=== PATIENT | female | born 1975 | race Caucasian/White ===

== ENCOUNTER 2019-10-25 12:36 | Emergency (ER) | payer OTHER ==
[2019-10-25 12:50] VITALS: PULSE 59
[2019-10-25] MEDS ORDERED: TORAdol 30 mg Injection IM ONE (13:16)
[2019-10-25] MEDS ORDERED: TORAdol 30 mg Injection ONE (13:18)
--- NOTE | 2019-10-25 13:21 | ERPHSYRPT ---
- History of Present Illness Time Seen by Provider: 10/25/19 12:54 Source: patient Exam Limitations: no limitations Patient Subjective Stated Complaint: pt to ER with complaints of R shoulder pain since last night. pt states limited ROM. pt states she was working out in yard yesterday and felt a "tear" or "pull". Triage Nursing Assessment: pt ambulatory. A&Ox4. pt skin pwd. limited ROM due to pain. Physician History: 44 yo wf w R shoulder pain after hearing a pop while tearing up boxes. Pain is 8 /10 and worse w abduction/external rotation. Pt is R handed and denies previous/ other injuries. Occurred: yesterday Method of Injury: other (Tearing up boxes) Quality: constant Severity of Pain-Max: severe Severity of Pain-Current: severe Extremities Pain Location: shoulder: right Modifying Factors: Improves With: movement Associated Symptoms: none Allergies/Adverse Reactions: acetaminophen [From Darvocet-N] Allergy (Intermediate, Verified 10/25/19 12:51) Hives propoxyphene [From Darvocet-N] Allergy (Intermediate, Verified 10/25/19 12:51) Hives tramadol Allergy (Intermediate, Verified 10/25/19 12:51) Hives Home Medications: Albuterol 1 amp INTRANASAL DAILY PRN PRN 10/25/19 [History] Buspirone HCl [Buspar] 10 mg PO BID 10/25/19 [History] Nitroglycerin 0.4 mg Tablet [Nitrostat 0.4 MG Tablet] 0.4 mg SL DAILY PRN PRN 10/25/19 [History] Prednisone 10 mg [Deltasone 10 mg] 10 mg PO DAILY 10/25/19 [History] atenoloL [Atenolol] 25 mg PO DAILY 10/25/19 [History] lisinopriL [Lisinopril] 40 mg PO DAILY 10/25/19 [History] Hx Tetanus, Diphtheria Vaccination/Date Given: Yes Hx Influenza Vaccination/Date Given: Yes Hx Pneumococcal Vaccination/Date Given: Yes Immunizations Up to Date: Yes Travel Risk - International Travel Have you traveled outside of the country in past 3 weeks: No Have you or anyone close to you been diagnosed with or: No Do your reside in a community with a known COVID-19 case?: Yes If Yes where:: [facility] - Coronavirus Screening Has patient experienced Coronavirus symptoms: No - Review of Systems Constitutional: No Symptoms Eyes: No Symptoms Ears, Nose, & Throat: No Symptoms Respiratory: No Symptoms Cardiac: No Symptoms Abdominal/Gastrointestinal: No Symptoms Genitourinary Symptoms: No Symptoms Musculoskeletal: Injury, No Arthralgias, No Back Pain, No Neck Pain, No Deformity, No Fall Skin: No Symptoms Neurological: No Symptoms Psychological: No Symptoms Endocrine: No Symptoms Hematologic/Lymphatic: No Symptoms Immunological/Allergic: No Symptoms - Past Medical History Pertinent Past Medical History: Yes Neurological History: No Pertinent History ENT History: No Pertinent History Cardiac History: Arrhythmia, Hypertension Respiratory History: Asthma Endocrine Medical History: No Pertinent History Musculoskeletal History: No Pertinent History GI Medical History: No Pertinent History History: No Pertinent History Psycho-Social History: No Pertinent History Female Reproductive Disorders: No Pertinent History - Past Surgical History Past Surgical History: Yes Neuro Surgical History: No Pertinent History Cardiac: No Pertinent History Respiratory: No Pertinent History Gastrointestinal: No Pertinent History Genitourinary: No Pertinent History Musculoskeletal: Orthopedic Surgery Female Surgical History: Section, Tubal Ligation Other Surgical History: urterine ablation. - Social History Smoking Status: Never smoker Exposure to second hand smoke: Yes Drug Use: none Patient Lives Alone: No Significant Family History: no pertinent family hx - Female History Hx Now: No - Nursing Vital Signs Nursing Vital Signs: Initial Vital Signs Temperature 98.9 F 10/25/19 12:42 Pulse Rate 59 L 10/25/19 12:42 Respiratory Rate 17 10/25/19 12:42 Blood Pressure 153/85 10/25/19 12:42 O2 Sat by Pulse Oximetry 96 10/25/19 12:42 Pain Scale Pain Intensity 8 - Physical Exam General Appearance: no apparent distress Eyes, Ears, Nose, Throat Exam: normal ENT inspection Neck Exam: normal inspection, non-tender, supple Cardiovascular/Respiratory Exam: chest non-tender, normal breath sounds, regular rate/rhythm, heart sounds normal Back Exam: normal inspection, normal range of motion Shoulder Exam: normal inspection (No evidence of dislocation/Pain w external rotation and abduction/good radial pulse, distal sensation, and capillary return ) Elbow/Forearm Exam: normal inspection Wrist Exam: normal inspection Hand Exam: normal inspection Neuro/Tendon Exam: normal sensation, normal motor functions, normal tendon functions, responds to pain Mental Status Exam: alert, oriented x 3, cooperative Skin Exam: normal color, warm, dry SpO2 Interpretation: normal SpO2: 96 O2 Delivery: Room Air - Course Nursing assessment & vital signs reviewed: Yes - Radiology Exams Shoulder X-ray Interpretation: Interpreted by me, No Fracture (No dislocation) Ordered Tests: Active Orders 24 hr Category Date Time Status SHOULDER Stat Exams 10/25/19 13:10 Taken Medication Summary Generic Name Dose Route Start Last Admin Trade Name Cadenq PRN Reason Stop Dose Admin Ketorolac Tromethamine 60 mg 10/25/19 13:16 Toradol 30 Mg Injection IM 10/25/19 13:17 STAT ONE - Progress Progress: improved Progress Note: 10/25/19 13:25 60mg IM toradol/Sling YOU per nurse, LEONARDI Counseled pt/family regarding: diagnosis, need for follow-up, rad results - Departure Departure Disposition: Home Clinical Impression: Rotator cuff (capsule) sprain Condition: Stable Critical Care Time: No Instructions: Shoulder Sprain (DC) Additional Instructions: Heat/Rest/Sling for 3-4 days/Toradol as needed for pain Follow up with your family Prescriptions: Ketorolac Tromethamine [Toradol] 10 mg PO TID PRN #10 tablet
--- NOTE | 2019-10-25 13:26 | XRAY ---
Indication: Pain following injury one day earlier. Comparison: None 3 view right shoulder demonstrates 1.5 cm acromion depression relative to the clavicle favoring acromioclavicular injury. No other bony, articular, or soft tissue abnormalities.
[2019-10-25 13:50] VITALS: BP 148/86; O2SAT 97
== END 2019-10-25 13:49 | disposition home or self-care (01) ==
LOC: ED 12:36
DX: S43.421A Sprain of right rotator cuff capsule, initial encounter (principal); M25.511 Pain in right shoulder; I10 Essential (primary) hypertension
CPT/HCPCS: 73030; 96372; 99284; J1885

== ENCOUNTER 2020-10-04 10:43 | Day surgery (SDC) | payer OTHER ==
[2020-10-04] MEDS ORDERED: BUPIVACAINE 0.5% VIAL IJ ONE (10:44)
[2020-10-04] MEDS ORDERED: Depo-Medrol 40 MG/ML IM ONE (10:44)
[2020-10-04] MEDS ORDERED: Lactated Ringers 1,000 ML IV ONE (16:27)
--- NOTE | 2020-10-04 17:49 | XRAY ---
33 seconds fluoroscopy time in surgery for intra-articular and subachromial injections of the right shoulder.
== END 2020-10-04 12:37 | disposition home or self-care (01) ==
LOC: SDC-PAIN 10:43
PROVIDERS: ATTEND Psychiatry & Neurology Pain Medicine
DX: M19.011 Primary osteoarthritis, right shoulder (principal); M75.51 Bursitis of right shoulder; I10 Essential (primary) hypertension; F41.8 Other specified anxiety disorders; J45.909 Unspecified asthma, uncomplicated; Z79.899 Other long term (current) drug therapy
CPT/HCPCS: 20610; 73030; 77002; 84703; J1030; Q9966

== ENCOUNTER 2021-02-14 13:34 | Day surgery (SDC) | payer OTHER ==
[2021-02-14] MEDS ORDERED: Depo-Medrol 40 MG/ML IM ONE (13:35)
[2021-02-14] MEDS ORDERED: Sodium Chloride 0.9(Preservative Free) 10 ML IJ ONE (13:35)
[2021-02-14] MEDS ORDERED: DIPRIVAN 200 MG/20 ML IV ONE (15:29)
[2021-02-14] MEDS ORDERED: Lactated Ringers 1,000 ML IV ONE (16:17)
--- NOTE | 2021-02-15 11:20 | XRAY ---
20 seconds fluoroscopy time in surgery for right L4-S1 transforaminal JAKI.
--- NOTE | 2021-02-17 23:05 | XRAY ---
Indication: Right L4-S1 transforaminal DOLLY. Intraoperative fluoroscopy was provided for 20 seconds. 3 digital spot images submitted for interpretation demonstrates posterior needle tips projected over the expected course of the right L4 and L5 nerve roots. A small amount of contrast has been injected for needle tip placement. Correlate with intraoperative findings/report.
== END 2021-02-14 15:51 | disposition home or self-care (01) ==
LOC: SDC-PAIN 13:34
PROVIDERS: ATTEND Psychiatry & Neurology Pain Medicine
DX: M54.16 Radiculopathy, lumbar region (principal); Z79.899 Other long term (current) drug therapy
CPT/HCPCS: 64483; 64484; 72100; 77003; 84703; J1030; J2704; Q9966

== ENCOUNTER 2021-03-21 08:14 | Day surgery (SDC) | payer OTHER ==
[2021-03-21] MEDS ORDERED: Depo-Medrol 40 MG/ML IM ONE (08:15)
[2021-03-21] MEDS ORDERED: BUPIVACAINE 0.5% VIAL IJ ONE (08:15)
[2021-03-21] MEDS ORDERED: Zofran 4 MG/2 ML VIAL ONE (08:58)
[2021-03-21] MEDS ORDERED: DIPRIVAN 200 MG/20 ML IV ONE (09:11)
--- NOTE | 2021-03-21 10:21 | XRAY ---
Indication: Right shoulder subacromial and intra-articular injections. Intraoperative fluoroscopy provided for 33 seconds. 2 digital spot image submitted for interpretation demonstrates needle tip projecting over the right glenohumeral joint superiorly. Second needle tip subacromial. Small amount of contrast injected for both needle tip placement. Correlate with intraoperative findings/report.
--- NOTE | 2021-03-21 11:46 | XRAY ---
33 seconds fluoroscopy time in surgery for injections of the subachromial bursa and intra-articular joint space of the right shoulder.
[2021-03-21] MEDS ORDERED: Lactated Ringers 1,000 ML IV ONE (17:24)
== END 2021-03-21 09:42 | disposition home or self-care (01) ==
LOC: SDC-PAIN 08:14
PROVIDERS: ATTEND Psychiatry & Neurology Pain Medicine
DX: M19.011 Primary osteoarthritis, right shoulder (principal); M75.51 Bursitis of right shoulder; I10 Essential (primary) hypertension; F41.9 Anxiety disorder, unspecified; F32.9 Major depressive disorder, single episode, unspecified; J45.909 Unspecified asthma, uncomplicated; M19.90 Unspecified osteoarthritis, unspecified site; Z79.899 Other long term (current) drug therapy
CPT/HCPCS: 20610; 73030; 77002; 84703; J1030; J2405; J2704; Q9966

== ENCOUNTER 2021-04-04 07:41 | Day surgery (SDC) | payer OTHER ==
[2021-04-04] MEDS ORDERED: LIDOCAINE HCL 2% 100 MG/5 ML IJ ONE (07:42)
[2021-04-04] MEDS ORDERED: DIPRIVAN 200 MG/20 ML IV ONE (09:13)
[2021-04-04] MEDS ORDERED: Lactated Ringers 1,000 ML IV ONE (09:55)
--- NOTE | 2021-04-04 10:12 | XRAY ---
Indication: Bilateral L4-S1 MBB. Intraoperative fluoroscopy provided for 12 seconds. Single digital spot image submitted for interpretation demonstrates posterior needle tips projecting over the expected left and right L4-S1 nerve roots. Correlate with intraoperative findings/report.
--- NOTE | 2021-04-04 10:30 | XRAY ---
12 seconds fluoroscopy time in surgery for bilateral L4-S1 MBB.
== END 2021-04-04 09:42 | disposition home or self-care (01) ==
LOC: SDC-PAIN 07:41
PROVIDERS: ATTEND Psychiatry & Neurology Pain Medicine
DX: M47.816 Spondylosis without myelopathy or radiculopathy, lumbar region (principal); I10 Essential (primary) hypertension; F41.9 Anxiety disorder, unspecified; F32.9 Major depressive disorder, single episode, unspecified; Z79.899 Other long term (current) drug therapy
CPT/HCPCS: 64493; 64494; 72020; 77002; 84703; J2704

== ENCOUNTER 2021-05-09 09:55 | Day surgery (SDC) | payer OTHER ==
[2021-05-09] MEDS ORDERED: BUPIVACAINE 0.5% VIAL IJ ONE (09:56)
[2021-05-09] MEDS ORDERED: DIPRIVAN 200 MG/20 ML IV ONE (12:46)
[2021-05-09] MEDS ORDERED: Lactated Ringers 1,000 ML IV ONE (13:31)
--- NOTE | 2021-05-09 14:49 | XRAY ---
Indication: Bilateral L4-S1 MBB. Intraoperative fluoroscopy provided for 24 seconds. Single digital spot image submitted for interpretation demonstrates posterior needle tips projecting over the expected left and right L4-S1 nerve roots. Correlate with intraoperative findings/report.
--- NOTE | 2021-05-09 17:02 | XRAY ---
24 seconds fluoroscopy time in surgery for bilateral L4-S1 MBB.
== END 2021-05-09 13:21 | disposition home or self-care (01) ==
LOC: SDC-PAIN 09:55
PROVIDERS: ATTEND Psychiatry & Neurology Pain Medicine
DX: M47.816 Spondylosis without myelopathy or radiculopathy, lumbar region (principal); I10 Essential (primary) hypertension; Z79.899 Other long term (current) drug therapy
CPT/HCPCS: 64493; 64494; 72020; 77002; 84703; J2704

== ENCOUNTER 2021-06-06 08:50 | Day surgery (SDC) | payer OTHER ==
[2021-06-06] MEDS ORDERED: Decadron 4 MG INJ IV ONE (08:51)
[2021-06-06] MEDS ORDERED: Xylocaine 1% Vial 30 ML PF IJ ONE (08:51)
[2021-06-06] MEDS ORDERED: BUPIVACAINE 0.5% VIAL IJ ONE (08:51)
[2021-06-06] MEDS ORDERED: Lactated Ringers 1,000 ML IV ONE (10:03)
[2021-06-06] MEDS ORDERED: DIPRIVAN 200 MG/20 ML IV ONE ×2 (11:05→11:12)
--- NOTE | 2021-06-06 12:59 | XRAY ---
Indication: Right L4-S1 RFA. Intraoperative fluoroscopy provided for 45 seconds. 3 digital spot images submitted for interpretation demonstrates posterior needle tips projecting over the expected right L4-S1 nerve roots. Correlate with intraoperative findings/report.
--- NOTE | 2021-06-06 13:50 | XRAY ---
45 seconds of fluoroscopy was used in surgery for a right L4-S1 RFA.
== END 2021-06-06 11:35 | disposition home or self-care (01) ==
LOC: SDC-PAIN 08:50
PROVIDERS: ATTEND Psychiatry & Neurology Pain Medicine
DX: M47.816 Spondylosis without myelopathy or radiculopathy, lumbar region (principal); I10 Essential (primary) hypertension; Z79.899 Other long term (current) drug therapy
CPT/HCPCS: 64635; 64636; 72100; 77002; 84703; J1100; J2001; J2704

== ENCOUNTER 2021-06-13 08:37 | Day surgery (SDC) | payer OTHER ==
[2021-06-13] MEDS ORDERED: BUPIVACAINE 0.5% VIAL IJ ONE (08:38)
[2021-06-13] MEDS ORDERED: Depo-Medrol 40 MG/ML IM ONE (08:38)
[2021-06-13] MEDS ORDERED: Xylocaine 1% Vial 30 ML PF IJ ONE (08:38)
[2021-06-13] MEDS ORDERED: APRESOLINE 20 MG/ML INJ ONE (09:14)
[2021-06-13] MEDS ORDERED: DIPRIVAN 200 MG/20 ML IV ONE ×2 (10:01→10:12)
[2021-06-13] MEDS ORDERED: Lactated Ringers 1,000 ML IV ONE (10:12)
--- NOTE | 2021-06-13 11:48 | XRAY ---
Indication: Left L4-S1 RFA. Intraoperative fluoroscopy provided for 45 seconds. 3 digital spot image submitted for interpretation demonstrates posterior needle tips projecting over the expected left L4-S1 nerve roots. Correlate with intraoperative findings/report.
--- NOTE | 2021-06-13 11:53 | XRAY ---
45 seconds of fluoroscopy was used in surgery for a left L4-S1 RFA.
== END 2021-06-13 10:35 | disposition home or self-care (01) ==
LOC: SDC-PAIN 08:37
PROVIDERS: ATTEND Psychiatry & Neurology Pain Medicine
DX: M47.816 Spondylosis without myelopathy or radiculopathy, lumbar region (principal); I10 Essential (primary) hypertension; Z79.899 Other long term (current) drug therapy
CPT/HCPCS: 64635; 72100; 77002; 84703; J0360; J1030; J2001; J2704